=== PATIENT | female | born 1985 | race Caucasian/White ===

== ENCOUNTER 2020-06-14 14:16 | Outpatient (CLI) | payer OTHER | END 2020-06-14 14:17 | disposition home or self-care (01) | LOC: LAB 14:16 | PROVIDERS: ATTEND Registered Nurse Maternal Newborn | DX: Z34.82 Encounter for supervision of other normal pregnancy, second trimester (principal); Z13.1 Encounter for screening for diabetes mellitus | CPT/HCPCS: 36415; 82950 ==

== ENCOUNTER 2020-06-19 07:59 | Outpatient (CLI) | payer OTHER | END 2020-06-19 08:00 | disposition home or self-care (01) | LOC: LAB 07:59 | PROVIDERS: ATTEND Registered Nurse Maternal Newborn | DX: R73.09 Other abnormal glucose (principal) | CPT/HCPCS: 36415; 82951; 82952 ==